=== PATIENT | male | born 1945 | race Caucasian/White ===

== ENCOUNTER → 2017-12-19 | Outpatient (CLI) | payer MEDICARE, BC ==
--- NOTE | 2017-12-21 17:28 | EEG ---
ELECTROENCEPHALOGRAM REPORT DATE OF EE12/19/2017. REFERRING PHYSICIAN: Dr. Monroy. CONSULTING INTERPRETING PHYSICIAN: Dr. Irving Montoya ELECTROENCEPHALOGRAPHIC EXAMINATION REPORT: INDICATION FOR EXAMINATION: This patient is a 72-year-old male being evaluated for recurrent episodes of taste abnormalities and possible partial seizures. Patient has been experiencing iron taste in the mouth lasting for 5 minutes associated with some amnesia. 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 AGE: 72. EEG FINDINGS: A routine 21 channel awake digital EEG recording was accomplished utilizing the 10-20 international system with bipolar and referential montages. The background activity in the most alert resting state consists of a low to medium amplitude, fairly well developed and well sustained 8 Hz activity over the posterior head regions. This posterior rhythm attenuates to eye opening. There is a small amount of low amplitude 18-20 Hz beta activity seen maximally over the anterior head regions. Muscle and movement artifact was observed on a few occasions during the tracing. Hyperventilation was not performed. Photic stimulation at flash frequencies of 2-30 Hz produced a minimal occipital driving response. No epileptiform discharges were seen. IMPRESSION: This EEG is within normal limits for the patient's age. The EEG failed to reveal any focal, lateralized, or epileptiform abnormalities. Clinical correlation is recommended. MMODL / IJN: [id number] /
== END | disposition home or self-care (01) ==
LOC: NEUROMAIN 11:43
PROVIDERS: ATTEND Family Medicine
DX: G40.89 Other seizures (principal)
CPT/HCPCS: 95816

== ENCOUNTER → 2018-01-29 | Outpatient (CLI) | payer MEDICARE, BC ==
--- NOTE | 2018-01-29 15:59 | MR ---
EXAMINATION TYPE: MR brain wo con DATE OF EXAM: 01/29/2018 COMPARISON: None HISTORY: Seizures TECHNIQUE: Multiplanar, multisequence images of the brain and brainstem is performed without intravenous contras t. FINDINGS: Diffusion weighted images demonstrate no evidence of a recent infarct or other diffusion ab normality. There is no extra-axial fluid collection there is moderate to severe burden nonspecific w maria fernanda matter change demonstrated as numerous foci of T2/FLAIR hyperintensity in the subcortical and pe riventricular white matter. The ventricular system and cisternal spaces are symmetrically prominent. Incidental note is made of negative cisterna magna. Midline structures demonstrate normal morphology. The craniocervical junction appears within normal limits.. The dural venous sinuses appear patent. The visualized sinuses demonstrate mild mucosal thic kening of the ethmoid sinus but are otherwise clear. The globes are intact. Extraocular muscles are s ymmetric. Mesial temporal lobes are symmetric and unremarkable. IMPRESSION: 1. No acute territorial infarct, midline shift or mass effect. 2. 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 3. Cerebral atrophy is seen with ventricular prominence that may also be on the basis of age-related volume loss or normal pressure hydrocephalus. No obstructing hydrocephalus.
== END | disposition home or self-care (01) ==
LOC: RADMRIMAIN 14:02
PROVIDERS: ATTEND Psychiatry & Neurology Neurology
DX: G31.9 Degenerative disease of nervous system, unspecified (principal); R90.89 Other abnormal findings on diagnostic imaging of central nervous system
CPT/HCPCS: 70551